=== PATIENT | female | born 1945 | race Caucasian/White ===

== ENCOUNTER 2016-11-24 11:06 | Day surgery (SDC) | payer MEDICARE, BC ==
[2016-11-24] MEDS ORDERED: LACTATED RINGERS 1,000 ML IV ONE (11:42)
[2016-11-24] MEDS ORDERED: fentaNYL 100 MCG/2 ML VIAL IVP ONE (12:00)
[2016-11-24] MEDS ORDERED: MIDAZOLAM 2 MG/2 ML VIAL IVP ONE (12:00)
[2016-11-24 13:23] VITALS: BP 127/62
== END 2016-11-24 11:07 | disposition home or self-care (01) ==
LOC: SDS 11:06
PROVIDERS: ATTEND Surgery
PROC: 0DBN8ZX Excision of Sigmoid Colon, Via Natural or Artificial Opening Endoscopic, Diagnostic (ICD-10-PCS; principal; 2016-11-24 12:15)
DX: K92.1 Melena (principal); D12.5 Benign neoplasm of sigmoid colon; K57.30 Diverticulosis of large intestine without perforation or abscess without bleeding; K64.8 Other hemorrhoids; E11.9 Type 2 diabetes mellitus without complications; J45.909 Unspecified asthma, uncomplicated; E78.5 Hyperlipidemia, unspecified; K21.9 Gastro-esophageal reflux disease without esophagitis; E66.9 Obesity, unspecified; Z68.34 Body mass index [BMI] 34.0-34.9, adult; Z80.1 Family history of malignant neoplasm of trachea, bronchus and lung; Z80.0 Family history of malignant neoplasm of digestive organs; Z80.8 Family history of malignant neoplasm of other organs or systems; Z83.3 Family history of diabetes mellitus; Z82.49 Family history of ischemic heart disease and other diseases of the circulatory system; Z88.5 Allergy status to narcotic agent
CPT/HCPCS: 45380; 45385; 88305; J7120

== ENCOUNTER 2016-12-10 11:18 | Outpatient (CLI) | payer MEDICARE, BC ==
--- NOTE | 2016-12-10 12:32 | XRAY Preliminary Report ---
Exam: XR Chest 2 View PA/LAT IMPRESSION: Increased minimal bibasilar density suggesting atelectasis or scarring. Very mild acute i nfiltrate, less likely. [facility] SITE ID: [id number]
--- NOTE | 2016-12-10 12:35 | XRAY Report ---
EXAM: CHEST RADIOGRAPHY EXAM DATE: 12/10/2016 11:41 AM. CLINICAL HISTORY: SOA,DECREASED LUNG SOUNDS IN LOWER LOBES. COMPARISON: 06/01/2009. TECHNIQUE: 2 views. FINDINGS: Lungs/Pleura: Increased minimal density at the lung bases suggesting minimal atelectasis or scarring. Minimal acute infiltrate is less likely. No focal consolidation. No pleural effusion or pneumothorax . Mediastinum: Heart and mediastinal contours are unremarkable. Other: None. IMPRESSION: Increased minimal bibasilar density suggesting atelectasis or scarring. Very mild acute i nfiltrate, less likely. [facility] Referring Provider Line: [phone] SITE ID: [id number]
== END 2016-12-10 11:19 | disposition home or self-care (01) ==
LOC: DI 11:18
PROVIDERS: ATTEND Naturopath
DX: R91.8 Other nonspecific abnormal finding of lung field (principal)
CPT/HCPCS: 71020

== ENCOUNTER 2017-07-26 12:34 | Outpatient (CLI) | payer MEDICARE, BC ==
[2017-07-26 18:12] LABS: CHOL/HDL RATIO 3.7 (<4.4); CHOLESTEROL 227 mg/dL; HDL CHOLESTEROL 62 mg/dL; LDL CHOLESTEROL,CALCULATED 143 mg/dL; LDL/HDL RATIO 2.3 (<4.4); VLDL CHOLESTEROL 22 mg/dL
[2017-07-26 18:30] LABS: HB2 TOTAL 16.3 g/dL; HEMOGLOBIN A1C 0.69 g/dL
== END 2017-07-26 12:35 | disposition home or self-care (01) ==
LOC: LAB.F 12:34
PROVIDERS: ATTEND Physician Assistant Medical
DX: E78.5 Hyperlipidemia, unspecified (principal); E11.9 Type 2 diabetes mellitus without complications
CPT/HCPCS: 36415; 80061; 83036

== ENCOUNTER 2018-03-21 09:48 | Outpatient (CLI) | payer MEDICARE, BC ==
[2018-03-21 17:29] LABS: HB2 TOTAL 15.5 g/dL; HEMOGLOBIN A1C 0.69 g/dL; HEMOGLOBIN A1C % 6.2 % (4.6-6.2)
== END 2018-03-21 09:49 | disposition home or self-care (01) ==
LOC: LAB.F 09:48
PROVIDERS: ATTEND Physician Assistant Medical
DX: E78.5 Hyperlipidemia, unspecified (principal)
CPT/HCPCS: 36415; 82043; 83036

== ENCOUNTER 2018-10-22 08:20 | Outpatient (CLI) | payer MEDICARE, BC ==
[2018-10-22 10:48] LABS: ALBUMIN 4.1 g/dL (3.2-5.5); ALBUMIN/GLOBULIN RATIO 1.5 (1.0-2.2); ALKALINE PHOSPHATASE 94 IU/L (42-121); ALT ALANINE AMINOTRANSFERASE 24 IU/L (10-60); AST ASPARTATE AMINOTRANSFERASE 19 IU/L (10-42); BILIRUBIN,TOTAL 0.6 mg/dL (0.2-1.0); BUN - BLOOD UREA NITROGEN 11 mg/dL (6-20); CALCIUM 9.6 mg/dL (8.5-10.3); CARBON DIOXIDE - CO2 29 mmol/L (21-32); CHLORIDE 102 mmol/L (101-111); CHOL/HDL RATIO 3.3 (<4.4); CHOLESTEROL 194 mg/dL; CREATININE 0.7 mg/dL (0.4-1.0); GFR - MDRD 82 (>89); GLUCOSE 130 mg/dL (70-100); HDL CHOLESTEROL 58 mg/dL; LDL CHOLESTEROL,CALCULATED 118 mg/dL; SODIUM 138 mmol/L (135-145); TOTAL PROTEIN 6.8 g/dL (6.7-8.2); VLDL CHOLESTEROL 18 mg/dL
== END 2018-10-22 08:21 | disposition home or self-care (01) ==
LOC: LAB.F 08:20
PROVIDERS: ATTEND Physician Assistant Medical
DX: E11.9 Type 2 diabetes mellitus without complications (principal); E78.5 Hyperlipidemia, unspecified
CPT/HCPCS: 36415; 80053; 80061; 83721

== ENCOUNTER 2018-10-24 13:57 | Outpatient (CLI) | payer MEDICARE, BC ==
[2018-10-24 18:25] LABS: HB2 TOTAL 16.3 g/dL; HEMOGLOBIN A1C 0.71 g/dL; HEMOGLOBIN A1C % 6.1 % (4.6-6.2)
== END 2018-10-24 13:58 | disposition home or self-care (01) ==
LOC: LAB.F 13:57
PROVIDERS: ATTEND Physician Assistant Medical
DX: E11.9 Type 2 diabetes mellitus without complications (principal)
CPT/HCPCS: 36415; 83036

== ENCOUNTER 2019-06-28 11:42 | Outpatient (CLI) | payer MEDICARE, BC ==
[2019-06-28 17:49] LABS: CHOL/HDL RATIO 3.1 (<4.4); CHOLESTEROL 216 mg/dL; HDL CHOLESTEROL 70 mg/dL; LDL CHOLESTEROL,CALCULATED 126 mg/dL; LDL/HDL RATIO 1.8 (<4.4); VLDL CHOLESTEROL 20 mg/dL
[2019-06-28 18:04] LABS: HB2 TOTAL 14.8 g/dL; HEMOGLOBIN A1C 0.64 g/dL; HEMOGLOBIN A1C % 6.1 % (4.6-6.2)
== END 2019-06-28 11:43 | disposition home or self-care (01) ==
LOC: LAB.S 11:42
PROVIDERS: ATTEND Physician Assistant Medical
DX: E11.9 Type 2 diabetes mellitus without complications (principal); E78.5 Hyperlipidemia, unspecified
CPT/HCPCS: 36415; 80061; 83036; 83721

== ENCOUNTER 2019-12-24 11:31 | Outpatient (CLI) | payer MEDICARE, BC ==
[2019-12-24 15:41] LABS: BASOPHILS % (AUTO) 0.8 %; EOSINOPHILS # (AUTO) 0.1 10^3/uL (0.0-0.7); HGB - HEMOGLOBIN 14.4 g/dL (12.0-16.0); LYMPHOCYTES # (AUTO) 1.4 10^3/uL (1.5-3.5); LYMPHOCYTES % (AUTO) 29.2 %; MEAN CORPUSCULAR HEMOGLOBIN 31.4 pg (27.0-31.0); MEAN CORPUSCULAR HGB CONC 33.4 g/dL (32.0-36.0); MEAN CORPUSCULAR VOLUME 93.9 fL (81.0-99.0); MEAN PLATELET VOLUME 9.6 fL (7.9-10.8); MONOCYTES # (AUTO) 0.4 10^3/uL (0.0-1.0); MONOCYTES % (AUTO) 8.4 %; NEUTROPHILS # (AUTO) 2.9 10^3/uL (1.5-6.6); NEUTROPHILS % (AUTO) 59.4 %; PLT - PLATELET COUNT 220 10^3/uL (130-450); RED BLOOD COUNT 4.59 10^6/uL (4.20-5.40); RED CELL DISTRIBUTION WIDTH 12.8 % (12.0-15.0); WHITE BLOOD COUNT 4.9 x10^3/uL (4.8-10.8)
[2019-12-24 15:43] LABS: BILIRUBIN,URINE NEGATIVE (NEGATIVE); GLUCOSE, URINE (UA) NEGATIVE (NEGATIVE); KETONES,URINE (UA) NEGATIVE (NEGATIVE); LEUKOCYTE ESTERASE, URINE SMALL (NEGATIVE); NITRITE,URINE NEGATIVE (NEGATIVE); OCCULT BLOOD,URINE NEGATIVE (NEGATIVE); PROTEIN,URINE NEGATIVE (NEGATIVE); UROBILINOGEN,URINE 0.2 (NORMAL) E.U./dL (NORMAL)
[2019-12-24 15:52] LABS: CLARITY,URINE CLEAR (CLEAR)
[2019-12-24 15:54] LABS: HEMOGLOBIN A1C 0.67 g/dL; HEMOGLOBIN A1C % 6.2 % (4.6-6.2)
[2019-12-24 15:59] LABS: BACTERIA,URINE Many /HPF (None Seen); RBC,URINE 0-5 /HPF (0-5); SQUAMOUS EPITHELIAL CELL,UR MOD Squamous (<= Few)
[2019-12-24 16:02] LABS: ALBUMIN 4.1 g/dL (3.2-5.5); ALBUMIN/GLOBULIN RATIO 1.6 (1.0-2.2); ALKALINE PHOSPHATASE 87 IU/L (42-121); ALT ALANINE AMINOTRANSFERASE 22 IU/L (10-60); AST ASPARTATE AMINOTRANSFERASE 17 IU/L (10-42); BILIRUBIN,TOTAL 0.8 mg/dL (0.2-1.0); BUN - BLOOD UREA NITROGEN 12 mg/dL (6-20); CALCIUM 9.5 mg/dL (8.5-10.3); CARBON DIOXIDE - CO2 28 mmol/L (21-32); CHLORIDE 108 mmol/L (101-111); CHOL/HDL RATIO 2.8 (<4.4); CHOLESTEROL 186 mg/dL; CREATININE 0.7 mg/dL (0.4-1.0); GLUCOSE 122 mg/dL (70-100); HDL CHOLESTEROL 67 mg/dL; LDL CHOLESTEROL,CALCULATED 104 mg/dL; LDL/HDL RATIO 1.6 (<4.4); SODIUM 141 mmol/L (135-145); TOTAL PROTEIN 6.6 g/dL (6.7-8.2); VLDL CHOLESTEROL 15 mg/dL
== END 2019-12-24 11:32 | disposition home or self-care (01) ==
LOC: LAB.S 11:31
PROVIDERS: ATTEND Family Medicine
DX: E11.9 Type 2 diabetes mellitus without complications (principal); E78.5 Hyperlipidemia, unspecified; N39.498 Other specified urinary incontinence
CPT/HCPCS: 36415; 80053; 80061; 81001; 81003; 82043; 82570; 83036; 83721; 84443; 85025; 87086

== ENCOUNTER 2020-05-25 10:13 | Outpatient (CLI) | payer MEDICARE, BC ==
[2020-05-25 15:32] LABS: CALCIUM 9.7 mg/dL (8.5-10.3); CREATININE 0.8 mg/dL (0.4-1.0)
[2020-05-25 15:46] LABS: CREATININE,URINE 205.4 mg/dL; MICROALBUM/CREATININE RATIO,UR 1.5 ug/mg (<30.0); MICROALBUMIN,URINE 0.3 mg/dL (0-300.0)
[2020-05-25 18:07] LABS: HEMOGLOBIN A1c% 6.1 % (4.27-6.07)
== END 2020-05-25 10:14 | disposition home or self-care (01) ==
LOC: LAB.S 10:13
PROVIDERS: ATTEND Registered Nurse
DX: E11.9 Type 2 diabetes mellitus without complications (principal); E78.5 Hyperlipidemia, unspecified; E66.9 Obesity, unspecified
CPT/HCPCS: 36415; 80048; 82043; 82570; 83036

== ENCOUNTER 2020-12-22 12:13 | Outpatient (CLI) | payer MEDICARE, BC ==
[2020-12-22 15:28] LABS: BASOPHILS % (AUTO) 0.9 %; EOSINOPHILS # (AUTO) 0.1 10^3/uL (0.0-0.7); EOSINOPHILS % (AUTO) 2.2 %; HCT - HEMATOCRIT 42.6 % (37.0-47.0); LYMPHOCYTES # (AUTO) 1.4 10^3/uL (1.5-3.5); LYMPHOCYTES % (AUTO) 30.8 %; MEAN CORPUSCULAR HEMOGLOBIN 30.6 pg (27.0-31.0); MEAN CORPUSCULAR HGB CONC 32.9 g/dL (32.0-36.0); MEAN PLATELET VOLUME 9.3 fL (7.9-10.8); MONOCYTES # (AUTO) 0.3 10^3/uL (0.0-1.0); MONOCYTES % (AUTO) 6.5 %; NEUTROPHILS # (AUTO) 2.7 10^3/uL (1.5-6.6); NEUTROPHILS % (AUTO) 59.4 %; PLT - PLATELET COUNT 229 10^3/uL (130-450); RED BLOOD COUNT 4.58 10^6/uL (4.20-5.40); WHITE BLOOD COUNT 4.5 x10^3/uL (4.8-10.8)
[2020-12-22 15:59] LABS: ALBUMIN 4.3 g/dL (3.2-5.5); ALKALINE PHOSPHATASE 88 IU/L (42-121); ALT ALANINE AMINOTRANSFERASE 25 IU/L (10-60); AST ASPARTATE AMINOTRANSFERASE 18 IU/L (10-42); BILIRUBIN,TOTAL 0.4 mg/dL (0.2-1.0); BUN - BLOOD UREA NITROGEN 12 mg/dL (6-20); CALCIUM 9.6 mg/dL (8.5-10.3); CARBON DIOXIDE - CO2 27 mmol/L (21-32); CHLORIDE 105 mmol/L (101-111); CHOL/HDL RATIO 3.3 (<4.4); CHOLESTEROL 211 mg/dL; CREATININE 0.6 mg/dL (0.4-1.0); GFR - MDRD 97 (>89); GLUCOSE 115 mg/dL (70-100); HDL CHOLESTEROL 63 mg/dL; LDL CHOLESTEROL,CALCULATED 134 mg/dL; LDL/HDL RATIO 2.1 (<4.4); POTASSIUM 3.9 mmol/L (3.5-5.0); SODIUM 142 mmol/L (135-145); TOTAL PROTEIN 6.4 g/dL (6.7-8.2); TRIGLYCERIDES 72 mg/dL; VLDL CHOLESTEROL 14 mg/dL
[2020-12-22 16:06] LABS: THYROID STIMULATING HORMONE 1.82 uIU/mL (0.34-5.60)
[2020-12-22 16:13] LABS: CREATININE,URINE 224.9 mg/dL; MICROALBUM/CREATININE RATIO,UR 3.6 ug/mg (<30.0); MICROALBUMIN,URINE 0.8 mg/dL (0-300.0)
[2020-12-22 19:48] LABS: ESTIMATED AVERAGE GLUCOSE 114 mg/dL (70-100); HEMOGLOBIN A1c% 5.6 % (4.27-6.07)
== END 2020-12-22 12:14 | disposition home or self-care (01) ==
LOC: LAB.S 12:13
PROVIDERS: ATTEND Registered Nurse
DX: E11.9 Type 2 diabetes mellitus without complications (principal); E66.9 Obesity, unspecified; E78.5 Hyperlipidemia, unspecified; J45.909 Unspecified asthma, uncomplicated; F41.9 Anxiety disorder, unspecified; F32.9 Major depressive disorder, single episode, unspecified
CPT/HCPCS: 36415; 80053; 80061; 82043; 82570; 83036; 83721; 84443; 85025

== ENCOUNTER 2021-08-17 09:58 | Outpatient (CLI) | payer MEDICARE ==
[2021-08-17 16:03] LABS: ALBUMIN 4.5 g/dL (3.2-5.5); ALBUMIN/GLOBULIN RATIO 2.1 (1.0-2.2); BILIRUBIN,TOTAL 0.6 mg/dL (0.2-1.0); CALCIUM 10.3 mg/dL (8.5-10.3); CREATININE 0.7 mg/dL (0.4-1.0); TOTAL PROTEIN 6.6 g/dL (6.7-8.2)
[2021-08-17 20:13] LABS: ESTIMATED AVERAGE GLUCOSE 126 mg/dL (70-100)
== END 2021-08-17 09:59 | disposition home or self-care (01) ==
LOC: LAB.S 09:58
PROVIDERS: ATTEND Registered Nurse
DX: E11.9 Type 2 diabetes mellitus without complications (principal)
CPT/HCPCS: 36415; 80053; 83036

== ENCOUNTER 2021-12-21 10:18 | Day surgery (SDC) | payer MEDICARE ==
[2021-12-21] MEDS ORDERED: LACTATED RINGERS 1,000 ML IV ONE (10:46)
[2021-12-21] MEDS ORDERED: PROPOFOL 500 MG/50 ML 500 MG/50 ML VIAL ONE (11:10)
--- NOTE | 2021-12-21 11:25 | ANESTHESIA ---
Pre-Anesthesia VS, & Labs - Diagnosis hemorrhoids, hx of colon polyps' - Procedure colonoscopy Vital Signs: Temp Pulse Resp BP Pulse Ox 36.6 C 82 16 143/79 H 96 12/21/21 10:46 12/21/21 10:46 12/21/21 10:46 12/21/21 10:46 12/21/21 10:46 Height: 5 ft Weight (kg): 84.9 kg Body Mass Index: 36.5 BMI Classification: Obese - NPO >8 hours - Is Patient ?: No - Lab Results Current Lab Results: Laboratory Tests 12/21/21 10:55: POC Whole Bld Glucose 126 H Lab results reviewed: Yes Home Medications and Allergies Ascorbic Acid [Vitamin C] 1,000 mg PO DAILY 11/24/16 Calcium Carbonate [Calcium] 600 mg PO DAILY 11/24/16 Cholecalciferol (Vitamin D3) [Vitamin D] 8,000 unit PO DAILY 11/24/16 Folic Acid 0.4 mg PO DAILY 11/24/16 Folic Acid/Vit B Complex and C [B-Complex Plus Vitamin C] 1 each PO DAILY 11/24/16 Magnesium Oxide [Magnesium] 500 mg PO DAILY 11/24/16 Multivitamin [Multiple Vitamins] 1 each PO DAILY 11/24/16 Allergies/Adverse Reactions: Allergies Allergy/AdvReac Type Severity Reaction Status Date / Time codeine Allergy Nausea Verified 12/21/21 10:59 petrolatum,white AdvReac Rash Verified 12/21/21 11:00 [From Petroleum Jelly] Anes History & Medical History - Anesthetic History Anesthesia Complications: reports: No previous complications Family history of Anesthesia Complications: Denies Family history of Malignant Hyperthermia: Denies - Medical History Cardiovascular: reports: None Pulmonary: reports: Asthma Gastrointestinal: reports: Ulcers Urinary: reports: None Musculoskeletal: reports: Fibromyalgia, Other Endocrine/Autoimmune: reports: Type 2 diabetes Skin: reports: None - Surgical History General: reports: Cholecystectomy Eyes Ears Nose Throat (EENT): reports: Cataracts, Tonsil/Adenoidectomy, Other Gynecologic: reports: Tubal ligation Orthopedic: reports: Carpal Tunnel surgery Exam General: Alert, Oriented x3, Cooperative, No acute distress Dental: WNL Mouth Openin Fingerbreadth Plan Anesthesia Type: General, Total IV Consent for Procedure(s) Verified and Reviewed: Yes Code Status: Attempt Resuscitation ASA classification: 2-Mild systemic disease Is this case an emergency?: No
[2021-12-21] MEDS ORDERED: LACTATED RINGERS 400 ML IV ONE (12:43)
[2021-12-21 13:16] VITALS: BP 125/69
--- NOTE | 2021-12-21 15:27 | ANESTHESIA POST OP EVALUATION ---
Anesthesia Post Eval - Post Anesthesia Eval Vitals: Last Vital Signs Temp 36.2 C L 12/21/21 13:16 Pulse 85 12/21/21 13:16 Resp 16 12/21/21 13:16 BP 125/69 12/21/21 13:16 Pulse Ox 96 12/21/21 13:16 CV Function Including HR & BP: Stable Pain Control: Satisfactory Nausea & Vomiting: Negative Mental Status: Baseline Respiratory Status: Airway Patent Hydration Status: Satisfactory Anesthesia Complications: None
== END 2021-12-21 10:19 | disposition home or self-care (01) ==
LOC: SDS 10:18
PROVIDERS: ATTEND Surgery
DX: Z12.11 Encounter for screening for malignant neoplasm of colon (principal); D17.79 Benign lipomatous neoplasm of other sites; K64.4 Residual hemorrhoidal skin tags; K64.8 Other hemorrhoids; K57.30 Diverticulosis of large intestine without perforation or abscess without bleeding; E66.9 Obesity, unspecified; Z68.36 Body mass index [BMI] 36.0-36.9, adult; E11.9 Type 2 diabetes mellitus without complications; J45.909 Unspecified asthma, uncomplicated; Z86.010 Personal history of colon polyps
CPT/HCPCS: G0105; J7120

== ENCOUNTER 2022-04-14 10:47 | Outpatient (CLI) | payer MEDICARE ==
[2022-04-14 14:19] LABS: BASOPHILS % (AUTO) 0.8 %; EOSINOPHILS # (AUTO) 0.2 10^3/uL (0.0-0.7); EOSINOPHILS % (AUTO) 4.2 %; HCT - HEMATOCRIT 44.1 % (37.0-47.0); HGB - HEMOGLOBIN 14.5 g/dL (12.0-16.0); LYMPHOCYTES # (AUTO) 1.4 10^3/uL (1.5-3.5); LYMPHOCYTES % (AUTO) 28.9 %; MEAN CORPUSCULAR HEMOGLOBIN 30.3 pg (27.0-31.0); MEAN CORPUSCULAR HGB CONC 32.9 g/dL (32.0-36.0); MEAN CORPUSCULAR VOLUME 92.3 fL (81.0-99.0); MEAN PLATELET VOLUME 9.6 fL (7.9-10.8); MONOCYTES # (AUTO) 0.3 10^3/uL (0.0-1.0); MONOCYTES % (AUTO) 6.7 %; NEUTROPHILS # (AUTO) 2.9 10^3/uL (1.5-6.6); NEUTROPHILS % (AUTO) 59.2 %; PLT - PLATELET COUNT 216 10^3/uL (130-450); RED BLOOD COUNT 4.78 10^6/uL (4.20-5.40); RED CELL DISTRIBUTION WIDTH 13.1 % (12.0-15.0)
[2022-04-14 14:36] LABS: CALCIUM 10.1 mg/dL (8.5-10.3); CREATININE 0.7 mg/dL (0.4-1.0); POTASSIUM 4.1 mmol/L (3.5-5.0)
[2022-04-14 14:44] LABS: CREATININE,URINE 117.3 mg/dL; MICROALBUM/CREATININE RATIO,UR 16.2 ug/mg (<30.0); MICROALBUMIN,URINE 1.9 mg/dL (0-300.0)
[2022-04-14 14:48] LABS: THYROID STIMULATING HORMONE 1.69 uIU/mL (0.34-5.60)
[2022-04-14 20:43] LABS: ESTIMATED AVERAGE GLUCOSE 146 mg/dL (70-100); HEMOGLOBIN A1c% 6.7 % (4.27-6.07)
== END 2022-04-14 10:48 | disposition home or self-care (01) ==
LOC: LAB.S 10:47
PROVIDERS: ATTEND Emergency Medicine
DX: E11.9 Type 2 diabetes mellitus without complications (principal)
CPT/HCPCS: 36415; 80048; 82043; 82570; 83036; 84443; 85025

== ENCOUNTER 2022-06-27 13:35 | Outpatient (CLI) | payer MEDICARE ==
[2022-06-27 20:27] LABS: CALCIUM 9.8 mg/dL (8.5-10.3); CREATININE 0.7 mg/dL (0.4-1.0); POTASSIUM 4.3 mmol/L (3.5-5.0)
[2022-06-27 21:10] LABS: ESTIMATED AVERAGE GLUCOSE 186 mg/dL (70-100); HEMOGLOBIN A1c% 8.1 % (4.27-6.07)
== END 2022-06-27 13:36 | disposition home or self-care (01) ==
LOC: LAB.S 13:35
PROVIDERS: ATTEND Registered Nurse
DX: E11.9 Type 2 diabetes mellitus without complications (principal)
CPT/HCPCS: 36415; 80048; 83036

== ENCOUNTER 2022-08-10 07:00 | Outpatient (CLI) | payer MEDICARE ==
--- NOTE | 2022-08-10 17:53 | XRAY Report ---
PROCEDURE: Hand 3 View RT INDICATIONS: PAIN IN RIGHT HAND TECHNIQUE: 3 views of the hand(s) acquired. COMPARISON: Correlation is made with the accompanying left hand plain films FINDINGS: Bones: No fractures or dislocations. No suspicious bony lesions. Focal degenerative change is seen involving the first carpometacarpal joint, with milder degenerative changes seen elsewhere. Generaliz ed osteopenia can be seen. Several of the proximal interphalangeal joints demonstrate erosions with a mild gullwing type deformity. Soft tissues: No suspicious soft tissue calcifications. IMPRESSION: Generalized degenerative changes and osteopenia can be seen. Findings are consistent with inflammatory arthritis. Reviewed by: Kavon Benz MD on 08/10/2022 4:52 PM [place] Approved by: Kavon Benz MD on 08/10/2022 4:52 PM [facility] Station ID: [id number]
--- NOTE | 2022-08-10 18:17 | XRAY Report ---
PROCEDURE: Hand 3 View LT INDICATIONS: PAIN IN LEFT HAND TECHNIQUE: 3 views of the hand(s) acquired. COMPARISON: None FINDINGS: Bones: No fractures or dislocations. No suspicious bony lesions. Diffuse osteopenia. Relatively ad vanced osteoarthritis involving the second through fifth PIP joints and second through fifth DIP join ts. There is also degenerative arthritis at the base of the thumb and thumb IP joint. Soft tissues: No suspicious soft tissue calcifications. IMPRESSION: Relatively advanced osteoarthritis involving multiple joints of the hand. Diffuse osteopenia. Reviewed by: Adrian De Souza MD on 08/10/2022 6:16 PM PST Approved by: Adrian De Souza MD on 08/10/2022 6:16 PM PST Station ID: [id number]
== END 2022-08-10 07:01 | disposition home or self-care (01) ==
LOC: DI.S 07:00
PROVIDERS: ATTEND Physician Assistant
DX: M19.041 Primary osteoarthritis, right hand (principal); M19.042 Primary osteoarthritis, left hand; M85.89 Other specified disorders of bone density and structure, multiple sites

== ENCOUNTER 2022-08-10 17:25 | Emergency (ER) | payer MEDICARE ==
--- OUTSIDE RECORDS SUMMARY | 2022-08-10 17:43 | EXTERNAL MEDICAL SUMMARY RPT | Continuity of Care Document ---
:1945 Author Organization [facility] Address [address] [place] [address] Phone Care Team Providers Name Role Phone Unavailable Unavailable Unavailable Giovana Heck Unavailable Unavailable Allergies No information. Encounters No information. Functional Status No information. Immunizations No information. Medications date description facility 2022-05-16 00:00 CHOLECALCIFEROL Walk-In Clinic Prim k[facility]al Care & Anc[facility] Services [facility] 2022-07-06 00:00 [facility]CALCIFEROL [facility] 2022-07-09 00:00 CHOLECALCIFEROL [facility] 2022-07-12 00:00 CHOLECALCIFEROL Walk-In Clinic [facility] k[facility]al Care & Anc[facility] Services [facility] 2022-08-10 00:00 CHOLECALCIFEROL [facility] 2022-05-16 00:00 arginine [facility]arginine) [facility] 2022-07-06 00:00 arginine (l-arginine) Walk-In Clinic [facility] Care & Ancillary Services [facility] 2022-07-09 00:00 arginine (l-arginine) [facility] 2022-07-12 00:00 arginine (l-arginine) [facility] 2022-08-10 00:00 arginine (l-arginine) Walk-In Clinic [facility] Care & Ancillary Services [facility] 2022-05-16 00:00 arginine (l-arginine) Walk-In Clinic [facility] Care & Ancillary Services [facility] 2022-07-06 00:00 arginine (l-arginine) Walk-In Clinic [facility] Care & Anc[facility] Services [facility] 2022-07-09 00:00 arginine (l-arginine) Walk[facility]In [facility] 2022-07-12 00:00 arginine (l-arginine) Walk-In Clinic [facility] & [facility] 2022-08-10 00:00 arginine (l-arginine) Walk-In Clinic P [facility] Care & [facility] 2022-05-16 00:00 ginkgo biloba leaf extract Walk-In Cli [facility] 2022-07-06 00:00 ginkgo biloba leaf extract Walk-In Cli [facility] [place] 2022-07-09 00:00 ginkgo biloba leaf extract Walk[facility]In Cli [facility] 2022-07-12 00:00 ginkgo biloba leaf extract Walk[facility] 2022-08-10 00:00 ginkgo biloba leaf extract Walk[facility]In Cli [facility] 2022-05-16 00:00 ginseng Walk-In Clinic Prim [facility] 2022-07-06 00:00 ginseng Walk-In Clinic Prim [facility] 2022-07-09 00:00 ginseng Walk-In Clinic Prim [facility] 2022-07-12 00:00 ginseng Walk-In Clinic Prim [facility] 2022-08-10 00:00 ginseng Walk-In Clinic Prim [facility] 2022-05-16 00:00 lactobacillus acidophilus Walk-In Clin ic [facility] & [facility] 2022-07-06 00:00 lactobacillus acidophilus Walk-In Clin ic [facility] & [facility] 2022-07-09 00:00 lactobacillus acidophilus Walk-In Clin ic [facility] & [facility] Services [facility] [place] 2022-07-12 00:00 lactobacillus acidophilus Walk-In Clin ic [facility] & [facility] [place] [place] 2022-08-10 00:00 lactobacillus acidophilus Walk-In Clin ic Primary [facility] & [facility] 2022-05-16 00:00 turmeric-turmeric root extract Walk-In Clinic [facility] 2022-07-06 00:00 turmeric-turmeric root extract Walk-In Clinic Primary Care & Ancillary Services [facility] 2022-07-09 00:00 turmeric-turmeric root extract Walk-In Clinic Primary Care & Ancillary Services [facility] 2022-07-12 00:00 turmeric-turmeric root extract Walk-In Clinic Primary Care & Ancillary Services [facility] 2022-08-10 00:00 turmeric-turmeric root extract Walk-In Clinic Primary Care & Ancillary Services [facility] 2022-05-16 00:00 5-hydroxytryptophan (5-htp) Walk-In Cl inic Primary Care & Ancillary Services [facility] 2022-07-06 00:00 5-hydroxytryptophan (5-htp) Walk-In Cl in Primary Care & Ancillary Services [facility] 2022-07-09 00:00 5-hydroxytryptophan (5-htp) Walk-In Cl in Primary Care & Ancillary Services [facility] 2022-07-12 00:00 5-hydroxytryptophan (5-htp) Walk-In Cl inic Primary Care & Ancillary Services [facility] 2022-08-10 00:00 5-hydroxytryptophan (5-htp) Walk-In Cl in Primary Care & Ancillary Services [facility] 2022-05-16 00:00 lutein-zeaxanthin Walk-In Clinic Prim [facility] Care & Ancillary Services [facility] 2022-07-06 00:00 lutein-zeaxanthin Walk-In Clinic Prim k[facility] Care & Ancillary Services [facility] 2022-07-09 00:00 lutein-zeaxanthin Walk-In Clinic Prim k[facility] Care & Ancillary Services [facility] 2022-07-12 00:00 lutein-zeaxanthin Walk-In Clinic Prim [facility] Care & Ancillary Services [facility] 2022-08-10 00:00 lutein-zeaxanthin Walk-In Clinic Prim k[facility]al Care & Ancillary Services [facility] 2022-05-16 00:00 lutein-zeaxanthin Walk-In Clinic Prim [facility] 2022-07-06 00:00 lutein-zeaxanthin Walk-In Clinic Prim k[facility] Care & Ancillary Services [facility] 2022-07-09 00:00 lutein-zeaxanthin Walk-In Clinic Prim k[facility]al Care & Ancillary Services [facility] 2022-07-12 00:00 lutein-zeaxanthin Walk-In Clinic Prim [facility] 2022-08-10 00:00 lutein-zeaxanthin Walk-In Clinic Prim [facility] 2022-05-16 00:00 blood sugar diagnostic Walk-In Clinic Primary [facility] Services [facility] 2022-05-16 00:00 arginine (l-arginine) Walk-In Clinic [facility] Care & [facility] Services [facility] 2022-07-06 00:00 arginine (l-arginine) Walk-In Clinic [facility] Care & Ancillary Services [facility] [place] 2022-07-09 00:00 arginine (l-arginine) Walk[facility]In Clinic [facility] Care & Ancillary Services [facility] 2022-07-12 00:00 arginine (l-arginine) Walk-In Clinic [facility] Care & [facility] Services [facility] 2022-08-10 00:00 arginine (l-arginine) Walk[facility]In Clinic [facility] Care & [facility] Services [facility] 2022-05-16 00:00 lactobacillus acidophilus Walk-In Clin ic Primary Care & [facility] Services [facility] 2022-07-06 00:00 lactobacillus acidophilus Walk-In Clin ic Primary Care & Anc[facility] Services [facility] 2022-07-09 00:00 lactobacillus acidophilus Walk-In Clin ic [facility] & [facility] [place] [place] 2022-07-12 00:00 lactobacillus acidophilus Walk-In Clin ic [facility] & [facility] 2022-08-10 00:00 lactobacillus acidophilus Walk-In Clin ic [facility] & [facility] [place] 2022-05-16 00:00 melatonin Walk-In Clinic Prim [facility] 2022-07-06 00:00 melatonin Walk-In Clinic Prim [facility] 2022-07-09 00:00 melatonin Walk-In Clinic Prim [facility] 2022-07-12 00:00 melatonin Walk-In Clinic Prim [facility] 2022-08-10 00:00 melatonin Walk-In Clinic Prim [facility] 2022-07-05 00:00 metformin Walk-In Clinic Prim [facility] 2022-05-16 00:00 ginseng Walk-In Clinic Prim [facility] 2022-07-06 00:00 ginseng Walk-In Clinic Prim [facility] [place] [place] 2022-07-09 00:00 ginseng Walk-In Clinic Prim [facility] [place] 2022-07-12 00:00 ginseng Walk-In Clinic Prim [facility] 2022-08-10 00:00 ginseng Walk-In Clinic Prim [facility] 2022-05-16 00:00 CHOLECALCIFEROL Walk-In Clinic Prim [facility] 2022-07-06 00:00 CHOLECALCIFEROL Walk-In Clinic Prim [facility] 2022-07-09 00:00 CHOLECALCIFEROL Walk-In Clinic Prim [facility] 2022-07-12 00:00 CHOLECALCIFEROL Walk-In Clinic Prim [facility] [place] [place] 2022-08-10 00:00 CHOLECALCIFEROL Walk-In Clinic Prim [facility] 2022-05-16 00:00 melatonin Walk-In Clinic Prim [facility] 2022-07-06 00:00 melatonin Walk-In Clinic Prim [facility] 2022-07-09 00:00 melatonin Walk-In Clinic Prim [facility] Care & [facility] Services [facility] 2022-07-12 00:00 melatonin Walk-In Clinic Prim [facility] 2022-08-10 00:00 melatonin Walk-In Clinic Prim [facility] 2022-05-16 00:00 5-hydroxytryptophan (5-htp) Walk-In Cl inic Primary Care & [facility] Services [facility] 2022-07-06 00:00 5-hydroxytryptophan (5-htp) Walk-In Cl inic Primary [facility] & [facility] Services [facility] 2022-07-09 00:00 5-hydroxytryptophan (5-htp) Walk-In Cl inic Primary [facility] & [facility] Services [facility] 2022-07-12 00:00 5-hydroxytryptophan (5-htp) Walk-In Cl inic Primary Care & [facility] Services [facility] 2022-08-10 00:00 5-hydroxytryptophan (5-htp) Walk-In Cl in Primary Care & Anc[facility] Services [facility] 2022-05-16 00:00 melatonin Walk-In Clinic Prim [facility] 2022-07-06 00:00 melatonin Walk-In Clinic Prim [facility] 2022-07-09 00:00 melatonin Walk[facility] melatonin Walk-In Clinic Prim [facility] 2022-08-10 00:00 melatonin Walk-In Clinic Prim [facility] 2022-05-16 00:00 lactobacillus acidophilus Walk-In Clin ic Primary Care & Anc[facility] Services [facility] 2022-07-06 00:00 lactobacillus acidophilus Walk-In Clin ic Primary Care & Ancillary Services jose atnonio 2022-07-09 00:00 lactobacillus acidophilus Walk-In Clin ic Primary Care & Ancillary Services [facility] 2022-07-12 00:00 lactobacillus acidophilus Walk-In Clin ic [facility]10 00:00 lactobacillus acidophilus Walk[facility]In Clin ic [facility]22-[facility]16 00:00 5-hydroxytryptophan (5-htp) Walk-In Cl in Primary Care & Ancillary Services [facility] 2022-07-06 00:00 5-hydroxytryptophan (5-htp) Walk-In Cl in Primary Care & Anc[facility] Services [facility] 2022-07-09 00:00 5-hydroxytryptophan (5-htp) Walk[facility] Cl [facility]12 00:00 5-hydroxytryptophan (5-htp) Walk-In Cl in Primary Care & Ancillary Services [facility] 2022-08-10 00:00 5-hydroxytryptophan (5-htp) Walk[facility]In Cl [facility]16 00:00 blood sugar diagnostic [facility]16 00:00 lutein-zeaxanthin Walk-In Clinic Prim [facility] 2022-07-06 00:00 lutein-zeaxanthin Walk-In Clinic Prim [facility] 2022-07-09 00:00 lutein-zeaxanthin Walk-In Clinic Prim [facility] Care & [facility] Services [facility] 2022-07-12 00:00 lutein-zeaxanthin Walk-In Clinic Prim [facility] [place] 2022-08-10 00:00 lutein-zeaxanthin Walk-In Clinic Prim [facility] [place] 2022-07-05 00:00 metformin Walk-In Clinic Prim [facility] 2022-07-05 00:00 metformin Walk-In Clinic Prim [facility] 2022-05-16 00:00 CHOLECALCIFEROL Walk-In Clinic Prim [facility] Care & [facility] Services [facility] 2022-07-06 00:00 CHOLECALCIFEROL Walk-In Clinic Prim [facility] Care & [facility] 2022-07-09 00:00 CHOLECALCIFEROL Walk-In Clinic Prim [facility] Services [facility] 2022-07-12 00:00 CHOLECALCIFEROL Walk-In Clinic Prim [facility] 2022-08-10 00:00 CHOLECALCIFEROL Walk-In Clinic Prim [facility] Care & [facility] Services [facility] 2022-05-16 00:00 turmeric-turmeric root extract Walk-In Clinic Primary Care & Ancillary Services [facility] 2022-07-06 00:00 turmeric-turmeric root extract Walk-In Clinic Primary [facility] 2022-07-09 00:00 turmeric-turmeric root extract Walk-In Clinic [facility] 2022-07-12 00:00 turmeric-turmeric root extract Walk-In Clinic Primary [facility] 2022-08-10 00:00 turmeric-turmeric root extract Walk-In Clinic [facility] Services [facility] 2022-05-16 00:00 arginine (l-arginine) Walk-In Clinic [facility] Care & Ancillary Services [facility]isa j[facility]io 2022-07-06 00:00 arginine (l-arginine) Walk[facility]In [facility] Care & Ancillary Services C [facility] 2022-07-09 00:00 arginine (l-arginine) [facility] Care & [facility] Services C [facility] 2022-07-12 00:00 arginine (l-arginine) [facility] Care & Ancillary Services C [facility] 2022-08-10 00:00 arginine (l-arginine) [facility]In [facility] Care & [facility]illary Services [facility] 2022-05-16 00:00 ginseng Walk-In Clinic Prim [facility] Services [facility] 2022-07-06 00:00 ginseng Walk-In Clinic Prim [facility] Care & [facility] Services [facility] 2022-07-09 00:00 ginseng Walk-In Clinic Prim [facility] Care & Anc[facility] Services [facility] 2022-07-12 00:00 ginseng Walk-In Clinic Prim [facility] Care & Anc[facility] Services C [facility] 2022-08-10 00:00 ginseng Walk-In Clinic Prim [facility] Care & [facility] Services [facility] 2022-05-16 00:00 ginkgo biloba leaf extract Walk-In Cli [facility] 2022-07-06 00:00 ginkgo biloba leaf extract Walk[facility]In [facility] 2022-07-09 00:00 ginkgo biloba leaf extract Walk[facility] 2022-07-12 00:00 ginkgo biloba leaf extract Walk[facility] 2022-08-10 00:00 ginkgo biloba leaf extract Walk[facility] 2022-07-05 00:00 metformin Walk-In Clinic Prim [facility] 2022-05-16 00:00 blood sugar diagnostic Walk-In Clinic [facility] 2022-05-16 00:00 ginkgo biloba leaf extract Walk[facility]In [facility] C [facility] 2022-07-06 00:00 ginkgo biloba leaf extract Walk[facility] C [facility] 2022-07-09 00:00 ginkgo biloba leaf extract Walk[facility] C [facility] 2022-07-12 00:00 ginkgo biloba leaf extract Walk[facility] C [facility] 2022-08-10 00:00 ginkgo biloba leaf extract Walk[facility]In [facility] C [facility] 2022-05-16 00:00 5-hydroxytryptophan (5-htp) Walk-In Cl inic Primary [facility] & Anc[facility] Services [facility] 2022-07-06 00:00 5-hydroxytryptophan (5-htp) Walk-In Cl inic [facility] & [facility] Services [facility] 2022-07-09 00:00 5-hydroxytryptophan (5-htp) Walk-In Cl inic Primary [facility] & [facility] Services C [facility] 2022-07-12 00:00 5-hydroxytryptophan (5-htp) Walk-In Cl inic Primary Care & Anc[facility] Services [facility] 2022-08-10 00:00 5-hydroxytryptophan (5-htp) Walk-In Cl in Primary Care & Ancillary Services C [facility] 2022-05-16 00:00 melatonin Walk-In Clinic Prim [facility] Care & [facility] Services C [facility] 2022-07-06 00:00 melatonin Walk-In Clinic Prim [facility] & [facility] Services C [facility] 2022-07-09 00:00 melatonin Walk-In Clinic Prim [facility] Care & [facility] Services C [facility] 2022-07-12 00:00 melatonin Walk-In Clinic Prim [facility] Care & [facility] Services C [facility] 2022-08-10 00:00 melatonin Walk-In Clinic Prim [facility] Care & [facility] Services C [facility] 2022-05-16 00:00 turmeric-turmeric root extract Walk-In Clinic Primary Care & [facility] Services C [facility] 2022-07-06 00:00 turmeric-turmeric root extract Walk-In Clinic Primary [facility] Services [facility] 2022-07-09 00:00 turmeric-turmeric root extract Walk-In Clinic Primary [facility] & [facility] Services C [facility] 2022-07-12 00:00 turmeric-turmeric root extract Walk-In Clinic Primary [facility] Services C [facility] 2022-08-10 00:00 turmeric-turmeric root extract Walk-In Clinic Primary [facility] & [facility] Services [facility] 2022-05-16 00:00 lutein-zeaxanthin Walk-In Clinic Prim [facility] 2022-07-06 00:00 lutein-zeaxanthin Walk-In Clinic Prim [facility] & [facility] Services C [facility] 2022-07-09 00:00 lutein-zeaxanthin Walk-In Clinic Prim [facility] Services [facility] 2022-07-12 00:00 lutein-zeaxanthin Walk-In Clinic Prim [facility] Care & [facility] Services C [facility] 2022-08-10 00:00 lutein-zeaxanthin Walk-In Clinic Prim [facility] 2022-05-16 00:00 Lavender & Ashwagandha Walk-In Clinic Primary Care & Ancillary Services [facility] 2022-07-06 00:00 Lavender & Ashwagandha Walk-In Clinic Primary Care & Ancillary Services [facility] 2022-07-09 00:00 Lavender & Ashwagandha Walk-In Clinic Primary [facility] & Anc[facility] Services [facility] 2022-07-12 00:00 Lavender & Ashwagandha Walk-In Clinic [facility] & [facility] Services [facility] 2022-08-10 00:00 Lavender & Ashwagandha Walk-In Clinic Primary Care & Ancillary Services [facility] Problems date description facility 2022-05-16 00:00 Gastroesophageal reflux disease Walk-I n Clinic Primary [facility] & [facility] Services [place] 2022-05-16 00:00 Esophageal reflux Walk-In Clinic Prim [facility]al Care & [facility] Services [place] 2022-05-16 00:00 Gastro-esophageal reflux disease Walk- In Clinic Primary Care without esophagitis & Ancillary Services [place] 2022-07-05 00:00 Other malaise and fatigue Walk-In Clin [facility] & [facility] Services [place] 2022-07-05 00:00 Fatigue Walk-In Clinic Prim [facility] Care & [facility] Services [facility] 2022-07-05 00:00 Other fatigue Walk-In Clinic Prim [facility] Care & [facility] Services [place] 2022-07-06 00:00 Gastroesophageal reflux disease Walk-I n Clinic Primary Care & Ancillary Services [place] 2022-07-06 00:00 Esophageal reflux Walk-In Clinic Prim [facility] Care & Anc[facility] Services [place] 2022-07-06 00:00 Gastro-esophageal reflux disease Walk- In Clinic Primary Care without esophagitis & Ancillary Services [facility] 2022-07-09 00:00 Gastroesophageal reflux disease Walk-I n Clinic Primary [facility] & [facility] Services [facility] 2022-07-09 00:00 Esophageal reflux Walk-In Clinic Prim [facility] Care & [facility] Services [facility] 2022-07-09 00:00 Gastro-esophageal reflux disease Walk- In Clinic Primary Care without esophagitis & Ancillary Services [facility] 2022-07-12 00:00 Gastroesophageal reflux disease Walk-I n Clinic Primary Care & [facility] Services [place] 2022-07-12 00:00 Esophageal reflux Walk-In Clinic Prim [facility] Care & [facility] Services [place] 2022-07-12 00:00 Gastro-esophageal reflux disease Walk- In Clinic Primary Care without esophagitis & Ancillary Services [place] 2022-08-10 00:00 Gastroesophageal reflux disease Walk[facility]I n Clinic [facility] & [facility] Services [facility] 2022-08-10 00:00 Impaired cognition Walk-In Clinic Prim [facility] & [facility] Services [place] 2022-08-10 00:00 Closed injury of head Walk-In Clinic P [facility] Care & Ancillary Services [place] 2022-08-10 00:00 Esophageal reflux Walk-In Clinic Prim [facility] Care & [facility] Services [place] 2022-08-10 00:00 Hand pain Walk-In Clinic Prim [facility] Care & [facility] [place] 2022-08-10 00:00 Contusion of hand Walk-In Clinic Prim [facility] & [facility] 2022-08-10 00:00 Pain in limb Walk-In Clinic Prim [facility] Care & [facility] 2022-08-10 00:00 Other signs and symptoms involving [facility]-In Clinic Primary Care cognition & Ancillary Services [place] 2022-08-10 00:00 Contusion of hand(s) Walk-In Clinic Pr imary Care & Ancillary Services [place] 2022-08-10 00:00 Gastro-esophageal reflux disease Walk- In Clinic Primary Care without esophagitis & Ancillary Services [facility] 2022-08-10 00:00 Pain in right hand Walk-In Clinic Prim [facility] Care & [facility] [place] 2022-08-10 00:00 Pain in left hand Walk-In Clinic Prim [facility]al Care & [facility] Services [place] 2022-08-10 00:00 Other symptoms and signs involving [facility] Primary Care cognitive functions and awareness & Anci llary Services [place] 2022-08-10 00:00 Unspecified injury of head, initial Wa lk-In Clinic Primary Care encounter & Ancillary Services [place] 2022-08-10 00:00 Contusion of unspecified hand, Walk-In Clinic Primary Care initial encounter & Ancillary Services [place] Procedures date description facility 2022-07-05 00:00 DM Sensory Foot Exam Walk-In Clinic Pr imary Care & Anc[facility] Services [place] 2022-07-05 00:00 Visit Code Hold Walk-In [facility] Prim [facility] Care & [facility] [place] 2022-08-10 00:00 Visit Code Hold Walk-In [facility] Prim [facility] Care & [facility] [place] 2022-08-10 00:00 First Ix admin via ID IM or jet Walk-I n Clinic Primary Care & injects with counseling by Ancillary Ser jc [place] [facility] for [facility] 2022-08-10 00:00 Boostrix Intramuscular Suspension Walk -In Clinic Primary Care & 5-2.5-18.5 Ancillary Services [facility] Results/Labs test date author facility value unit interpret ation Result panel 1 (unknown) (no date) (unknown) Walk-In (no value) (units (unk nown) Clinic Primary unknown) Care & Ancillary Services [place] Result panel 2 (unknown) (no date) (unknown) Walk-In (no value) (units (unk nown) Clinic Primary unknown) Care & Anc[facility] Services [place] Result panel 3 (unknown) (no date) (unknown) Walk-In (no value) (units (unk nown) Clinic Primary unknown) Care & [facility] Services [place] Result panel 4 (unknown) (no date) (unknown) Walk-In (no value) (units (unk nown) Clinic Primary unknown) Care & [facility] Services [place] Result panel 5 (unknown) (no date) (unknown) Walk-In (no value) (units (unk nown) Clinic Primary unknown) Care & [facility] Services [place] Result panel 6 (unknown) (no date) (unknown) Walk-In (no value) (units (unk nown) Clinic Primary unknown) Care & [facility] Services [place] Result panel 7 (unknown) (no date) (unknown) Walk-In (no value) (units (unk nown) Clinic Primary unknown) Care & [facility] Services [place] Result panel 8 (unknown) (no date) (unknown) Walk-In (no value) (units (unk nown) Clinic Primary unknown) Care & Anc[facility] Services [facility] Result panel 9 (unknown) (no date) (unknown) Walk-In (no value) (units ([facility] nown) [facility] Primary unknown) [facility] [place] Result panel 10 (unknown) (no date) (unknown) Walk-In (no value) (units ([facility] nown) [facility] Primary unknown) [facility] [place] Result panel 11 (unknown) (no date) (unknown) Walk-In (no value) (units ([facility] nown) [facility] Primary unknown) [facility] [place] Result panel 12 (unknown) (no date) (unknown) Walk-In (no value) (units ([facility] nown) [facility] Primary unknown) [facility] Result panel 13 (unknown) (no date) (unknown) Walk-In (no value) (units ([facility] nown) [facility] Primary unknown) [facility] [place] Result panel 14 (unknown) (no date) (unknown) Walk-In (no value) (units ([facility] nown) [facility] Primary unknown) [facility] Result panel 15 (unknown) (no date) (unknown) Walk-In (no value) (units ([facility] nown) [facility] Primary unknown) [facility] Result panel 16 (unknown) (no date) (unknown) Walk-In (no value) (units ([facility] nown) [facility] Primary unknown) [facility] Result panel 17 (unknown) (no date) (unknown) Walk-In (no value) (units ([facility] nown) [facility] Primary unknown) [facility] Result panel 18 (unknown) (no date) (unknown) Walk-In (no value) (units ([facility] nown) [facility] Primary unknown) [facility] Result panel 19 (unknown) (no date) (unknown) Walk-In (no value) (units ([facility] nown) [facility] Primary unknown) [facility] Result panel 20 (unknown) (no date) (unknown) Walk-In (no value) (units ([facility] nown) [facility] Primary unknown) [facility] Result panel 21 (unknown) (no date) (unknown) Walk-In (no value) (units ([facility] nown) [facility] Primary unknown) [facility] Result panel 22 (unknown) (no date) (unknown) Walk-In (no value) (units ([facility] nown) [facility] Primary unknown) [facility] Result panel 23 (unknown) (no date) (unknown) Walk-In (no value) (units ([facility] nown) [facility] Primary unknown) [facility] Result panel 24 (unknown) (no date) (unknown) Walk-In (no value) (units ([facility] nown) [facility] Primary unknown) [facility] Result panel 25 (unknown) (no date) (unknown) Walk-In (no value) (units ([facility] nown) [facility] Primary unknown) [facility] Result panel 26 (unknown) (no date) (unknown) Walk-In (no value) (units ([facility] nown) [facility] Primary unknown) [facility] Result panel 27 (unknown) (no date) (unknown) Walk-In (no value) (units ([facility]own) [facility] Primary unknown) [facility] Result panel 28 (unknown) (no date) (unknown) Walk-In (no value) (units ([facility] nown) [facility] Primary unknown) [facility] Result panel 29 (unknown) (no date) (unknown) Walk-In (no value) (units ([facility] nown) [facility] Primary unknown) [facility] Result panel 30 (unknown) (no date) (unknown) Walk-In (no value) (units ([facility] nown) [facility] Primary unknown) [facility] Result panel 31 (unknown) (no date) (unknown) Walk-In (no value) (units ([facility] nown) [facility] Primary unknown) [facility] Result panel 32 (unknown) (no date) (unknown) Walk-In (no value) (units ([facility] nown) [facility] Primary unknown) [facility] Result panel 33 (unknown) (no date) (unknown) Walk-In (no value) (units ([facility] nown) [facility] Primary unknown) [facility] Result panel 34 (unknown) (no date) (unknown) Walk-In (no value) (units ([facility] nown) [facility] Primary unknown) [facility] Result panel 35 (unknown) (no date) (unknown) Walk-In (no value) (units ([facility] nown) [facility] Primary unknown) [facility] Result panel 36 (unknown) (no date) (unknown) Walk-In (no value) (units ([facility] nown) Clinic Primary unknown) [facility] Result panel 37 (unknown) (no date) (unknown) Walk-In (no value) (units ([facility] nown) [facility] Primary unknown) [facility] Result panel 38 (unknown) (no date) (unknown) Walk-In (no value) (units ([facility] nown) [facility] Primary unknown) [facility] Result panel 39 (unknown) (no date) (unknown) Walk-In (no value) (units ([facility] nown) [facility] Primary unknown) [facility] Result panel 40 (unknown) (no date) (unknown) Walk-In (no value) (units ([facility] nown) [facility] Primary unknown) [facility] Result panel 41 (unknown) (no date) (unknown) Walk-In (no value) (units ([facility] nown) [facility] Primary unknown) [facility] Result panel 42 (unknown) (no date) (unknown) Walk-In (no value) (units ([facility] nown) [facility] Primary unknown) [facility] Result panel 43 (unknown) (no date) (unknown) Walk-In (no value) (units ([facility] nown) [facility] Primary unknown) [facility] Result panel 44 (unknown) (no date) (unknown) Walk-In (no value) (units ([facility] nown) [facility] Primary unknown) [facility] Result panel 45 (unknown) (no date) (unknown) Walk-In (no value) (units ([facility] nown) Clinic Primary unknown) [facility] Result panel 46 (unknown) (no date) (unknown) Walk-In (no value) (units ([facility] nown) [facility] Primary unknown) [facility] Result panel 47 (unknown) (no date) (unknown) Walk-In (no value) (units ([facility] nown) Clinic Primary unknown) [facility] [place] Result panel 48 (unknown) (no date) (unknown) Walk-In (no value) (units ([facility] nown) Clinic Primary unknown) [facility] [place] Social History date description facility 2022-07-05 00:00 Never smoker Walk-In [facility] [place] 2022-08-10 00:00 Never smoker Walk-In [facility] [place] Vital Signs date measurement value units 2022-07-05 00:00 BMI 36.71 kg/m2 2022-07-05 00:00 BP_diastolic 78 mmHg 2022-07-05 00:00 BP_systolic 138 mmHg 2022-07-05 00:00 heart_rate 86 /min 2022-07-05 00:00 height_metric 153.67 cm 2022-07-05 00:00 height_standard 60.5 in 2022-07-05 00:00 respiration_rate 14 /min 2022-07-05 00:00 temperature_metric 36.39 C 2022-07-05 00:00 temperature_standard 97.5 F 2022-07-05 00:00 weight_metric 86.36 kg 2022-07-05 00:00 weight_standard 190.4 lb 2022-08-10 00:00 BMI 36.63 kg/m2 2022-08-10 00:00 BP_diastolic 78 mmHg 2022-08-10 00:00 BP_systolic 161 mmHg 2022-08-10 00:00 heart_rate 64 /min 2022-08-10 00:00 height_metric 153.67 cm 2022-08-10 00:00 height_standard 60.5 in 2022-08-10 00:00 respiration_rate 18 /min 2022-08-10 00:00 temperature_metric 36.11 C 2022-08-10 00:00 temperature_standard 97 F 2022-08-10 00:00 weight_metric 86.18 kg 2022-08-10 00:00 weight_standard 190 lb
--- NOTE | 2022-08-10 18:48 | ED Physician Documentation ---
History of Present Illness - Stated complaint Stated Complaint: GLF/HEAD INJ - Chief complaint Chief Complaint: Trauma Hd/Nk - Additonal information Additional information: 76-year-old female was advised to come to the emergency department for evaluation of facial trauma after ground-level fall this afternoon. She was walking into the [facility] when she dropped her mask. She bent down to pick it up and fell forward sustaining a hematoma and abrasion on her right forehead nose and mouth. She had also reported some bilateral hand pain. She went to the local walk-in clinic where they updated her tetanus and obtain hand x-rays which per their interpretation were negative. However given the mechanism and age she was advised to present to the emergency department for a CT. Patient denies that she lost consciousness. The endorses that the patient has had a cognitive decline recently and they are doing an outpatient work-up and evaluation of this as they suspect she may be developing Alzheimer's/dementia. History is obtained mostly from her . Review of Systems Unable to obtain: Confused Constitutional: reports: Reviewed and negative Nose: denies: Epistaxis Skin: reports: Other (Facial abrasions) Musculoskeletal: denies: Neck pain Neurologic: reports: Head injury. 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 HEENT: Cataracts, Tonsil/Adenoidectomy, Other - Present Medications Home Medications: Ambulatory Orders Medication Instructions Recorded Confirmed Ascorbic Acid [Vitamin C] 1,000 mg PO DAILY 11/24/16 12/21/21 Calcium Carbonate [Calcium] 600 mg PO DAILY 11/24/16 12/21/21 Cholecalciferol (Vitamin D3) 8,000 unit PO DAILY 11/24/16 12/21/21 [Vitamin D] Folic Acid 0.4 mg PO DAILY 11/24/16 12/21/21 Folic Acid/Vit B Complex and C 1 each PO DAILY 11/24/16 12/21/21 [B-Complex Plus Vitamin C] Magnesium Oxide [Magnesium] 500 mg PO DAILY 11/24/16 12/21/21 Multivitamin [Multiple Vitamins] 1 each PO DAILY 11/24/16 12/21/21 - Allergies Allergies/Adverse Reactions: Allergies Allergy/AdvReac Type Severity Reaction Status Date / Time codeine Allergy Nausea Verified 08/10/22 17:37 petrolatum,white AdvReac Rash Verified 08/10/22 17:37 [From Petroleum Jelly] PD ED PE NORMAL - General General: Alert and oriented X 3, No acute distress, Well developed/nourished - HEENT HEENT: Atraumatic (Superficial facial abrasions of the right forehead nose upper lip and chin. Extraocular movements are intact. No midface tenderness was elicited. No malocclusion of the teeth. Normal phonation.), Moist mucous membranes - Neck Neck: Supple, no meningeal sign, No adenopathy, C-Spine cleared by NEXUS criteria - Cardiac Cardiac: RRR, No murmur - Respiratory Respiratory: No respiratory distress, Clear bilaterally - Abdomen Abdomen: Normal bowel sounds - Back Back: No CVA TTP - Derm Derm: Normal color, Warm and dry. No: Other (Multiple facial abrasions) - Extremities Extremities: No deformity, No tenderness to palpate, Normal ROM s pain - Neuro Neuro: Alert and oriented X 3, counselor nurses[employer] association 2-12 intact Eye Opening: Spontaneous Motor: Obeys Commands Verbal: Oriented GCS Score: 15 Results - Vitals Vitals: Vital Signs - 24 hr 08/10/22 17:33 Temperature 36.7 C Heart Rate 79 Respiratory 16 Rate Blood Pressure 172/112 H O2 Saturation 95 Oxygen O2 Source Room air - Rads (name of study) CT head Radiology: Final report received (No acute intercranial process. Moderate atrophy and chronic microvascular ischemic changes) CT max/fac Radiology: Final report received (No visualized fracture) PD Medical Decision Making - ED course Complexity details: reviewed results, re-evaluated patient, considered differential, d/w patient, d/w family ED course: Well-appearing 76-year-old female who has been dealing with some dementia and memory changes recently presents the emergency department on the advice of an outpatient provider for evaluation of closed head injury after ground-level fall this morning onto concrete for her in which she sustained fairly significant facial abrasions over the right eyebrow nose and lip. There was no loss of consciousness. She is not anticoagulated. On presentation she is alert well-appearing. She is ambulatory without assistance. The facial abrasions have been cleaned and dressed with bacitracin. She has an intact neurological exam with no focal deficits. We did do a CT of the maxillofacial bones as well as of her brain and there were no findings suggest fracture, or anterior cerebral hemorrhage or injury. She did have her C-spine cleared by Nexus criteria. At this time she is discharged home in stable condition. Routine emergent return precautions discussed for further concerns of head injury Departure - Departure Disposition: Home, Self Care Clinical Impression: Fall from ground level Facial abrasion Qualifiers: Encounter type: initial encounter Qualified Code(s): S00.81XA - Abrasion of other part of head, initial encounter Condition: Stable Record reviewed to determine appropriate education?: Yes Comments: You came to the emergency department because you were referred from an outpatient provider for evaluation of your head after fall this morning in the parking lot. We did do a CT of your head as well as a CT of the bones in your face. There is nothing to suggest broken bones or bruising or bleeding within the brain. At this time you can continue your usual care and medications at home. You should return immediately to the ER if you develop any sudden severe headache, have uncontrolled vomiting, slurred speech or facial droop.
--- NOTE | 2022-08-10 19:49 | CT Report ---
PROCEDURE: HEAD WO INDICATIONS: glf TECHNIQUE: Noncontrast 4.5 mm thick angled axial sections acquired from the foramen magnum to the vertex. For r adiation dose reduction, the following was used: automated exposure control, adjustment of mA and/or kV according to patient size. COMPARISON: CT maxillofacial exam 08/10/2022 FINDINGS: Image quality: Excellent. The ventricular system and cortical sulci demonstrate atrophy, consistent for patient's stated age. There are areas of hypodensity in the periventricular and subcortical white matter. There is no acut e intra or extra-axial fluid collection. No acute hemorrhage, mass lesion or midline shift. Brainst em is unremarkable. Globes are symmetrical. Sinuses are aerated. Osseous structures are intact. IMPRESSION: 1. No acute intracranial process. 2. Moderate atrophy and chronic microvascular ischemic changes. Reviewed by: Jeanette Arita MD on 08/10/2022 7:47 PM PST Approved by: Jeanette Arita MD on 08/10/2022 7:47 PM PST Station ID: [id number]
--- NOTE | 2022-08-10 19:50 | CT Report ---
PROCEDURE: MAXILLOFACIAL WO INDICATIONS: glf TECHNIQUE: Noncontrast 1.5 mm thick axial images acquired from the mandible through the frontal sinuses, with co liliana and sagittal reformatting. For radiation dose reduction, the following was used: automated ex posure control, adjustment of mA and/or kV according to patient size. COMPARISON: None. FINDINGS: Image quality: Excellent. Bones and teeth: Orbital alejandre are intact. Sinus alejandre show no fracture or deformity. Nasal bones and septum are intact. Visualized portions of the mandible demonstrate no fractures or subluxation. Zygomatic arches are intact. Pterygoid plates are intact. Visualized portions of the skull base an d auditory canals are intact. Sinuses: Paranasal sinuses are aerated, without fluid levels, mucosal thickening, or mucoceles. Mas toid air cells are aerated. Soft tissues: No edema, masses, or fluid collections. No enlarged lymph nodes. No soft tissue lace rations or debris. Vascular: Visualized vascular structures appear normal in the absence of contrast. Bony vascular fo ramina and canals are intact. IMPRESSION: No visualized fracture. Reviewed by: Jeanette Arita MD on 08/10/2022 7:49 PM PST Approved by: Jeanette Arita MD on 08/10/2022 7:49 PM PST Station ID: [id number]
[2022-08-10 20:09] VITALS: BP 152/81
== END 2022-08-10 20:08 | disposition home or self-care (01) ==
LOC: ED 17:25
DX: S00.211A Abrasion of right eyelid and periocular area, initial encounter (principal); E11.9 Type 2 diabetes mellitus without complications; S00.31XA Abrasion of nose, initial encounter; S00.511A Abrasion of lip, initial encounter; W18.30XA Fall on same level, unspecified, initial encounter; Y92.538 Other ambulatory health services establishments as the place of occurrence of the external cause; F03.90 Unspecified dementia, unspecified severity, without behavioral disturbance, psychotic disturbance, mood disturbance, and anxiety
CPT/HCPCS: 99283; 99284

== ENCOUNTER 2022-08-16 10:20 | Outpatient (CLI) | payer MEDICARE ==
--- NOTE | 2022-08-16 11:42 | SLEEP CARE CONSULTATION ---
Information from patient questionnaire entered by Natalya Jaime. I have reviewed and concur with the information entered by Natalya Jaime. This document represents the service I personally performed and the decisions made by me, Giselle Cortez ARNP. History of Present Illness Service Date and Time: 08/16/2022 1020 Reason for Visit: New patient Accompanied by: Spouse (Ed) Chief Complaint: reports: Insomnia, Unrefreshed sleep, Fatigue, Frequent awakenings at night Date of Onset: all my life Usual bedtime: 10 pm-1 am Time it takes to fall asleep: forever or immediately, varies Snores at night: No Observed to quit breathing while asleep: Yes (not lately but did in the past) Number of times waking at night: 2-3 Reasons for waking at night: reports: Pain, Bathroom, Other (light noise ). denies: Choking, Gasping for air Toss, Turn, or Twitch while sleeping: Yes Recalls having dreams: Yes Usually gets out of bed at: 8-10 Feels refreshed in the morning: No Morning headache: Yes (sometimes; resolves 2-3 hrs after waking ) Sleepy or fatigued during the day: Yes Ever fallen asleep while driving: Yes Takes day naps: No Dreams during day naps: Yes Prior sleep studies: No Additional HPI information: I had the pleasure of seeing CLARK GREENWOOD today regarding the possibility of her having a sleep disorder. Her current complaints are fatigue, frequent night awakenings, insomnia and unrefreshed sleep. She had a physical and her PA put her down with fatigue. She was then referred here but is not completely sure why. She states since Covid pandemic she has not been being as active and sleeping more on irregular schedule. She states for all her life she has had irregular sleep schedules. She is currently retired. 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 She has diabetes that is currently not well controlled according to her last A1c, according to patient. She has more daytime fatigue and has less interest in doing her normal daytime activities. 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 Patient is and lives in [place]. Have you smoked in the past 12 months: No Alcohol use: No Caffeine use: Yes Caffeine amount and frequency: 1.5 cups daily Family History Family history of sleep disordered breathing: Yes Family Hx Sleep Apnea: Father: Snoring Allergies and Home Medications Known drug allergies: Yes Drug allergies reviewed: Yes (as listed in EMR) Home medication list reviewed: Yes (as listed in EMR) Review of Systems Cardiovascular: denies: high blood pressure Respiratory: reports: shortness of breath, wheeze Gastrointestinal: reports: heartburn, nausea, diarrhea, abdominal pain Urinary: reports: incontinence, frequency, urgency Neurological: reports: headaches, head trauma, disorientation, gait or balance problems Psychiatric: reports: anxiety, depression, mood disorder, claustrophobia Ear/Nose/Throat: reports: nasal congestion, sinus problems, dry mouth/throat, injury to nose, tonsillectomy, wisdom teeth removed Endocrine: reports: sluggishness, too hot or cold, excessive thirst Musculoskeletal: reports: joint pain, neck pain, back pain, joint swelling, muscle pain or cramping, mobility problems Immunologic: reports: sneezing, rash, itching Physical Exam Vital signs obtained and entered by: NATALYA Ledezma MA Blood Pressure: 126/64 (left arm ) Cuff size: regular Heart Rate: 94 O2 Saturation: 95 Height: 5 ft Weight: 192 lb 6.4 oz Body Mass Index: 37.5 BMI Classification: Obese Neck circumference: 17.5 Mouth and throat: narrow oropharynx Soft palate: long Hard palate: normal Uvula: normal Uvula visualization: 25% Mallampati Class III Tongue: enlarged in size with teeth briones on lateral edges Tonsils: absent bilaterally Neck: normal w/o lymphadenopathy or thyromegaly Heart: regular rate and rhythm Lungs: clear bilaterally Impression and Plan 1. Suspected Obstructive Sleep Apnea-Hypopnea Syndrome, as suggested by a history of observed cessation of breath while asleep, morning headache, frequent awakening during the night, unrefreshed sleep, cognitive impairment, and excessive daytime sleepiness. Narrow oropharynx and obesity are common predisposing factors for obstructive sleep apnea-hypopnea syndrome. I recommend proceeding to polysomnography to confirm the diagnosis and to assess severity. If the patient has significant sleep disordered breathing, a manual CPAP titration study will also be performed to find the optimal treatment pressure. I informed the patient of what the sleep studies involve and after some d iscussion, obtained agreement to proceed. The pathophysiology of obstructive sleep apnea-hypopnea syndrome was discussed with the patient and health risks of cardiovascular and cerebrovascular disease if not treated. Risks of drowsy driving discussed in detail and patient advised to avoid long distance driving and to kiln puller at the first sign of drowsiness. Patient agreed to plan. * Schedule polysomnography * Avoid long distance driving or driving when feeling sleepy. * Avoid alcohol, sedative and muscle relaxant around bedtime. * Attempt to lose weight. * Review instructions provided by trained office staff on how to prepare for the sleep study. * Return for follow-up after sleep study completed. Counseling Topics: Weight loss health impact Visit Type: In Office Other Participants: Spouse/Significant Other Time Spent with Patient (minutes): 31 Provider Statement: I spent 100% of the Face to Face Visit with the patient with greater than 50% spent counseling the patient and coordination of care.
[2022-08-16 11:43] VITALS: BP 126/64
== END 2022-08-16 10:21 | disposition home or self-care (01) ==
LOC: SC 10:20
PROVIDERS: ATTEND Nurse Practitioner Family
DX: R53.83 Other fatigue (principal); R51.9 Headache, unspecified; G47.8 Other sleep disorders; R06.81 Apnea, not elsewhere classified; E11.9 Type 2 diabetes mellitus without complications; E66.9 Obesity, unspecified; Z68.37 Body mass index [BMI] 37.0-37.9, adult
CPT/HCPCS: 99203; G0463; 99212

== ENCOUNTER 2022-09-14 11:19 | Outpatient (CLI) | payer MEDICARE ==
[2022-09-14 15:37] LABS: CHOL/HDL RATIO 4.5 (<4.4); CHOLESTEROL 240 mg/dL; HDL CHOLESTEROL 53 mg/dL; LDL CHOLESTEROL,CALCULATED 155 mg/dL; LDL/HDL RATIO 2.9 (<4.4); TRIGLYCERIDES 159 mg/dL; VLDL CHOLESTEROL 32 mg/dL
[2022-09-14 20:18] LABS: ESTIMATED AVERAGE GLUCOSE 180 mg/dL (70-100); HEMOGLOBIN A1c% 7.9 % (4.27-6.07)
== END 2022-09-14 11:20 | disposition home or self-care (01) ==
LOC: LAB.S 11:19
PROVIDERS: ATTEND Nurse Practitioner Acute Care
DX: E11.9 Type 2 diabetes mellitus without complications (principal); E78.5 Hyperlipidemia, unspecified
CPT/HCPCS: 36415; 80061; 83036; 83721

== ENCOUNTER 2023-03-20 09:08 | Outpatient (CLI) | payer MEDICARE ==
[2023-03-20 15:49] LABS: ALBUMIN 4.3 g/dL (3.2-5.5); ALBUMIN/GLOBULIN RATIO 1.9 (1.0-2.2); BILIRUBIN,TOTAL 0.6 mg/dL (0.2-1.0); CALCIUM 10.6 mg/dL (8.5-10.3); CREATININE 0.8 mg/dL (0.6-1.3); POTASSIUM 4.1 mmol/L (3.5-4.5); TOTAL PROTEIN 6.6 g/dL (6.4-8.9)
[2023-03-20 21:19] LABS: ESTIMATED AVERAGE GLUCOSE 169 mg/dL (70-100); HEMOGLOBIN A1c% 7.5 % (4.27-6.07)
== END 2023-03-20 09:09 | disposition home or self-care (01) ==
LOC: LAB.S 09:08
PROVIDERS: ATTEND Registered Nurse
DX: E11.9 Type 2 diabetes mellitus without complications (principal)
CPT/HCPCS: 36415; 80053; 83036

== ENCOUNTER 2023-05-02 07:04 | Outpatient (CLI) | payer MEDICARE ==
--- NOTE | 2023-05-02 09:30 | Ultrasound Report ---
PROCEDURE: Carotid Doppler Complete INDICATIONS: COGNITIVE CHANGES TECHNIQUE: Color and pulse Doppler interrogation was performed of both carotid systems, with image documentation and velocity measurements. COMPARISON: None. FINDINGS: Right side: Brachial blood pressure: 119/57 mm Hg. Common carotid artery peak systolic velocity: 72 cm/sec. Internal carotid artery peak systolic velocity: 80 cm/sec. Internal carotid artery end diastolic velocity: 22 cm/sec. External carotid artery peak systolic velocity: 65 cm/sec. ICA/CCA peak systolic ratio: 1.1 . Spaulding scale imaging description: No significant atherosclerotic plaque. Percent internal carotid artery stenosis: No hemodynamically significant stenosis. Vertebral artery: Flow direction is antegrade. Left side: Brachial blood pressure: 124/56 mm Hg. Common carotid artery peak systolic velocity: 60 cm/sec. Internal carotid artery peak systolic velocity: 100 cm/sec. Internal carotid artery end diastolic velocity: 17 cm/sec. External carotid artery peak systolic velocity: 62 cm/sec. ICA/CCA peak systolic ratio: 1.67 . Spaulding scale imaging description: No significant atherosclerotic plaque. Percent internal carotid artery stenosis: No hemodynamically significant stenosis. Vertebral artery: Flow direction is antegrade. IMPRESSION: 1. In the right internal carotid artery, there is no hemodynamically significant stenosis based on pe ak systolic velocity criteria. 2. In the left internal carotid artery, there is no hemodynamically significant stenosis based on pea k systolic velocity criteria. 3. Antegrade blood flow within the right vertebral artery. 4. Antegrade blood flow within the left vertebral artery. The estimate of stenosis included in the report of the imaging study was calculated using the [facility]-end orsed standards of carotid artery stenosis. Reviewed by: Inocente June on 05/02/2023 9:29 AM PDT Approved by: Inocente June on 05/02/2023 9:29 AM PDT Station ID: [id number]
== END 2023-05-02 07:05 | disposition home or self-care (01) ==
LOC: DI 07:04
PROVIDERS: ATTEND Registered Nurse
DX: R41.89 Other symptoms and signs involving cognitive functions and awareness (principal)
CPT/HCPCS: 93880

== ENCOUNTER 2023-07-12 09:58 | Outpatient (CLI) | payer MEDICARE ==
[2023-07-12 15:19] LABS: BASOPHILS % (AUTO) 0.5 %; EOSINOPHILS # (AUTO) 0.2 10^3/uL (0.0-0.7); HCT - HEMATOCRIT 38.2 % (37.0-47.0); HGB - HEMOGLOBIN 12.7 g/dL (12.0-16.0); LYMPHOCYTES # (AUTO) 2.6 10^3/uL (1.5-3.5); LYMPHOCYTES % (AUTO) 32.9 %; MEAN CORPUSCULAR HEMOGLOBIN 30.9 pg (27.0-31.0); MEAN CORPUSCULAR HGB CONC 33.2 g/dL (32.0-36.0); MEAN CORPUSCULAR VOLUME 92.9 fL (81.0-99.0); MEAN PLATELET VOLUME 9.5 fL (7.9-10.8); MONOCYTES # (AUTO) 0.6 10^3/uL (0.0-1.0); MONOCYTES % (AUTO) 7.5 %; NEUTROPHILS # (AUTO) 4.4 10^3/uL (1.5-6.6); PLT - PLATELET COUNT 260 10^3/uL (130-450); RED BLOOD COUNT 4.11 10^6/uL (4.20-5.40); RED CELL DISTRIBUTION WIDTH 12.8 % (12.0-15.0); WHITE BLOOD COUNT 7.9 x10^3/uL (4.8-10.8)
[2023-07-12 15:41] LABS: THYROID STIMULATING HORMONE 3.11 uIU/mL (0.34-5.60)
[2023-07-12 16:42] LABS: ALBUMIN 4.2 g/dL (3.2-5.5); ALBUMIN/GLOBULIN RATIO 1.6 (1.0-2.2); ALKALINE PHOSPHATASE 87 IU/L (42-121); ALT ALANINE AMINOTRANSFERASE 27 IU/L (10-60); AST ASPARTATE AMINOTRANSFERASE 17 IU/L (10-42); BILIRUBIN,TOTAL 0.5 mg/dL (0.2-1.0); BUN - BLOOD UREA NITROGEN 11 mg/dL (6-20); CALCIUM 10.8 mg/dL (8.5-10.3); CARBON DIOXIDE - CO2 28 mmol/L (21-32); CHLORIDE 101 mmol/L (101-111); CHOL/HDL RATIO 3.3 (<4.4); CHOLESTEROL 187 mg/dL; CREATININE 0.7 mg/dL (0.6-1.3); GFR - MDRD 81 (>89); GLUCOSE 121 mg/dL (74-104); HDL CHOLESTEROL 56 mg/dL; LDL CHOLESTEROL,CALCULATED 106 mg/dL; LDL/HDL RATIO 1.9 (<4.4); POTASSIUM 4.1 mmol/L (3.5-4.5); SODIUM 137 mmol/L (135-145); TOTAL PROTEIN 6.8 g/dL (6.4-8.9); TRIGLYCERIDES 126 mg/dL (48-352); VLDL CHOLESTEROL 25 mg/dL
== END 2023-07-12 09:59 | disposition home or self-care (01) ==
LOC: LAB.S 09:58
PROVIDERS: ATTEND Registered Nurse
DX: Z13.228 Encounter for screening for other metabolic disorders (principal); Z13.220 Encounter for screening for lipoid disorders; Z13.29 Encounter for screening for other suspected endocrine disorder; Z13.0 Encounter for screening for diseases of the blood and blood-forming organs and certain disorders involving the immune mechanism
CPT/HCPCS: 36415; 80053; 80061; 83721; 84443; 85025